=== PATIENT | female | born 1970 | race Caucasian/White ===

== ENCOUNTER 2018-09-16 20:15 | Emergency (ER) | payer OTHER | END 2018-09-16 21:16 | disposition home or self-care (01) | LOC: FER 20:15 ==

== ENCOUNTER 2018-10-06 14:54 | Emergency (ER) | payer OTHER ==
[2018-10-06 14:59] VITALS: BP 110/87; PULSE 60; TEMP 98.8; BMI 31.3
[2018-10-06] MEDS ORDERED: IBUPROFEN 600 MG TABLET (FP) PO ONE ×2 (16:48→16:57)
--- NOTE | 2018-10-06 16:48 | PDOC ---
History of Present Illness - General Chief Complaint: Pain, Acute Stated Complaint: right knee pain Time Seen by Provider: 10/06/18 15:35 History Source: Patient Exam Limitations: No Limitations - History of Present Illness Initial Comments: 10/06/18 16:45 48-year-old female with history of arthritis presents with right knee injury. Around 9:10 AM this morning, patient slipped at work and landed directly on her right knee, no other injuries. Has been ambulating with some discomfort since then, presents now for evaluation. Did not take anything for pain, denies any motor or sensory deficit. Past History - Past Medical History Allergies/Adverse Reactions: Allergies Allergy/AdvReac Type Severity Reaction Status Date / Time coconut oil Allergy Mild Verified 10/06/18 14:55 peanut Allergy Mild Verified 10/06/18 14:55 soy Allergy Mild Verified 10/06/18 14:55 Home Medications: Ambulatory Orders Levothyroxine [Synthroid -] 225 mcg PO DAILY 09/16/18 CVA: No COPD: No GI Disorders: No (but has sensitive stomach with multiple food allergies) Liver Disease: No Thyroid Disease: Yes (HYPOTHYROIDISM, takes Synthroid) - Suicide/Smoking/Psychosocial Hx Smoking Status: No Smoking History: Current some day smoker Have you smoked in the past 12 months: No Number of Cigarettes Smoked Daily: 0 If you are a former smoker, when did you quit?: years Information on smoking cessation initiated: Yes Hx Alcohol Use: No Drug/Substance Use Hx: No Review of Systems - Review of Systems Constitutional: No: Chills, Fever Cardiac (ROS): No: Edema, Syncope Musculoskeletal: Yes: Joint Pain Neurological: No: Tingling, Weakness *Physical Exam - Vital Signs Last Vital Signs Temp Pulse Resp BP Pulse Ox 98.8 F 60 16 110/87 100 10/06/18 14:55 10/06/18 14:55 10/06/18 14:55 10/06/18 14:55 10/06/18 14:55 - Physical Exam Comments: 10/06/18 16:46 Vital signs are normal. GENERAL: The patient is awake, alert, and fully oriented, in no acute distress. Ambulating independently slightly favoring right knee. HEAD: Normal with no signs of trauma. EYES: Pupils equal, round and reactive to light, extraocular movements intact, sclera anicteric, conjunctiva clear. EXTREMITIES: No obvious deformity or joint effusion, subtle soft tissue swelling over the proximal aspect of the right tibia without underlying bony deformity or tenderness to palpation, extensor mechanism is intact without patellar tenderness, full flexion. 5 out of 5 flexion and extension of both hips /knees/ankle/toes, no deformity or swelling or bony tenderness of the ankle NEUROLOGICAL: Normal speech, slightly antalgic gait. PSYCH: Normal mood, normal affect. SKIN: Warm, Dry, normal turgor, no rashes or lesions noted. No abrasions or lacerations ED Treatment Course - RADIOLOGY Radiology Studies Ordered: Category Date Time Status KNEE 2 POS-RIGHT [RAD] Stat Radiology 10/06/18 16:40 Ordered Medical Decision Making - Medical Decision Making 10/06/18 16:47 48-year-old female with slip and fall this morning, right knee injury most consistent with contusion/sprain, rule out fracture. Neurovascularly intact. Ibuprofen for pain Right knee x-ray Disposition accordingly 10/06/18 17:31 on my prelim review of the xray, no acute fracture/dislocation but there are some arthritic changes, ? patellar osteophyte with fracture but patella itself intact. ambulating comfortably. bulkey dressing applied, ortho referral provided. *DC/Admit/Observation/Transfer Diagnosis at time of Disposition: Right knee injury Qualifiers: Encounter type: initial encounter Qualified Code(s): S89.91XA - Unspecified injury of right lower leg, initial encounter - Discharge Dispostion Disposition: HOME Condition at time of disposition: Stable - Referrals Referrals: Jonathan Thrasher MD [Staff Physician] - - Patient Instructions Printed Discharge Instructions: DI for Knee Sprain Additional Instructions: Activity as tolerated, maintain supportive dressing as instructed as needed. Stay hydrated. Tylenol 1000 mg every 8 hours and/or ibuprofen 600 mg every 8 hours as needed for pain. Ice and elevate the affected areas for 20 minutes every 3-4 hours to reduce swelling. Continue your medications as previously prescribed by your physician. You should follow up with an orthopedic (consider calling Dr. Thrasher) as needed regarding today's emergency department visit. Return to the emergency department for any new or concerning symptoms, particularly persistent or worsening pain, severe swelling or discoloration, numbness. - Post Discharge Activity
== END 2018-10-06 17:46 | disposition home or self-care (01) ==
LOC: FER 14:54
DX: S89.91XA Unspecified injury of right lower leg, initial encounter (principal); W01.0XXA Fall on same level from slipping, tripping and stumbling without subsequent striking against object, initial encounter; Y93.89 Activity, other specified; Y92.89 Other specified places as the place of occurrence of the external cause; Y99.0 Civilian activity done for income or pay; F17.210 Nicotine dependence, cigarettes, uncomplicated; E03.9 Hypothyroidism, unspecified; M19.90 Unspecified osteoarthritis, unspecified site
CPT/HCPCS: 73560-TC-RT-FY; 81025; 99281-25

== ENCOUNTER 2020-02-18 09:26 | Day surgery (SDC) | payer OTHER ==
[2020-02-14 15:46] VITALS: BMI 27.6
[2020-02-18] MEDS ORDERED: PROPOFOL 20 ML ONE ×2 (09:42)
[2020-02-18 10:39] VITALS: TEMP 100
[2020-02-18 11:13] VITALS: BP 104/72; PULSE 64
--- NOTE | 2020-02-21 17:22 | PATH ---
Surgical Pathology Report Patient Name: GEOVANNA PITTS [facility]. Rec. #: [id number] /Age/Gender: 1970 (Age: 50) / F Account: [id number] [facility] Taken: 02/18/2020 Received: 02/18/2020 Reported: 02/21/2020 Physicians: Bran Arellano M.D. Specimen(s) Received A: GASTRIC POLYP B: ANTRUM C: BODY OF STOMACH D: FUNDUS E: DISTAL ESOPHAGUS Clinical History Screening. Postoperative diagnosis: Gastric polyp/GERD/gastritis. Hiatal hernia, hemorrhoids Final Diagnosis A. GASTRIC POLYP, BIOPSY: POLYPOID GASTRIC MUCOSA WITH MODERATE CHRONIC GASTRITIS AND INTESTINAL METAPLASIA. NO DYSPLASIA IDENTIFIED. IMMUNOHISTOCHEMICAL STAIN FOR H. PYLORI IS NEGATIVE. B. STOMACH, ANTRUM, BIOPSY: GASTRIC ANTRAL MUCOSA WITH MILD CHRONIC GASTRITIS. IMMUNOHISTOCHEMICAL STAIN FOR H. PYLORI IS NEGATIVE. C. STOMACH, BODY, BIOPSY: GASTRIC MUCOSA WITH SEVERE CHRONIC ACTIVE GASTRITIS AND INTESTINAL METAPLASIA NO DYSPLASIA IDENTIFIED. IMMUNOHISTOCHEMICAL STAIN FOR H. PYLORI IS POSITIVE (FEW). D. FUNDUS, BIOPSY: GASTRIC MUCOSA WITH SEVERE CHRONIC ACTIVE GASTRITIS AND INTESTINAL METAPLASIA NO DYSPLASIA IDENTIFIED. IMMUNOHISTOCHEMICAL STAIN FOR H. PYLORI IS POSITIVE (FEW). E. DISTAL ESOPHAGUS, BIOPSY: SQUAMOUS MUCOSA WITH CHANGES OF MILD REFLUX TYPE ESOPHAGITIS. Positive and negative controls (internal if applicable) show appropriate results. Electronically Signed Anupama Vieyra M.D. Gross Description A. Received in formalin, labeled "gastric polyp" is a reyna, irregular portion of soft tissue measuring 0.4 cm. in greatest dimension. The specimen is submitted in toto in one cassette. B. Received in formalin, labeled "antrum" are 2 reyna, irregular portions of soft tissue each measuring 0.3 cm. in greatest dimension. The specimens are submitted in toto in one cassette. C. Received in formalin, labeled "body of stomach" are 2 reyna, irregular portions of soft tissue each measuring 0.4 cm. in greatest dimension. The specimens are submitted in toto in one cassette. D. Received in formalin, labeled "fundus" are 2 reyna, irregular portions of soft tissue measuring 0.2 cm and 0.3 cm. in greatest dimension. The specimens are submitted in toto in one cassette. E. Received in formalin, labeled "distal esophagus" are 3 reyna, irregular portions of soft tissue each measuring 0.2 cm. in greatest dimension. The specimens are submitted in toto in one cassette. AE02/18/2020 ebram02/18/2020
== END 2020-02-18 11:25 | disposition home or self-care (01) ==
LOC: FASU-ENDO 09:26
PROVIDERS: ATTEND Internal Medicine Gastroenterology
PROC: 0DB38ZX Excision of Lower Esophagus, Via Natural or Artificial Opening Endoscopic, Diagnostic (ICD-10-PCS; 2020-02-18)
PROC: 0DB68ZX Excision of Stomach, Via Natural or Artificial Opening Endoscopic, Diagnostic (ICD-10-PCS; 2020-02-18)
PROC: 0DJD8ZZ Inspection of Lower Intestinal Tract, Via Natural or Artificial Opening Endoscopic (ICD-10-PCS; principal; 2020-02-18 10:06)
DX: K29.50 Unspecified chronic gastritis without bleeding (principal); K21.0 Gastro-esophageal reflux disease with esophagitis; K31.9 Disease of stomach and duodenum, unspecified; K31.7 Polyp of stomach and duodenum; B96.81 Helicobacter pylori [H. pylori] as the cause of diseases classified elsewhere; K44.9 Diaphragmatic hernia without obstruction or gangrene; R10.9 Unspecified abdominal pain; R19.4 Change in bowel habit; K64.8 Other hemorrhoids
CPT/HCPCS: 88305-TC; 88342-TC